=== PATIENT | male | born 1960 | race Caucasian/White ===

== ENCOUNTER 2022-04-28 15:32 | Emergency (ER) | payer SELFPAY ==
[~2022-04-28] VITALS: Ht 177.8 cm; Wt 70.5 kg
[~2022-04-28 15:32] MED LIST: CLEOCIN HC150 MG/CAP PO; NO HOME MEDICATIONS; NORCO 325 MG-51 TAB PO
[2022-04-28 16:11] VITALS: TEMP 98.5
[2022-04-28 17:06] LABS: BASO % 0.3 % (0.0-2.0); EOS # 0.3 K/mm3 (0.0-0.7); EOS % 3.4 % (0.0-4.0); GRAN # 6.2 K/mm3 (1.4-6.5); GRAN % 67.5 % (42.2-75.2); HEMATOCRIT 49.2 % (42.0-52.0); HEMOGLOBIN 15.9 g/dl (13.5-18.0); LYMPH # 1.6 K/mm3 (1.2-3.4); LYMPH % 17.3 % (20.0-51.0); MEAN CELL VOLUME 91 fl (80.0-100.0); MEAN CORPUSCULAR HEMOGLOBIN 29 pg (27-31); MEAN CORPUSCULAR HGB CONC 32 g/dl (33.0-37.0); MEAN PLATELET VOLUME 10.1 fl (7.4-10.4); MONO % 11.3 % (1.7-9.3); PLATELET COUNT 184 K/mm3 (130-400); RED BLOOD COUNT 5.42 M/mm3 (4.20-5.60); REDCELL DISTRIBUTION WIDTH-CV 13.8 % (11.5-14.5)
[2022-04-28 17:23] LABS: ALANINE AMINOTRANSFERASE 14 U/L (0-55); ALBUMIN 3.6 gm/dL (3.4-4.8); ALKALINE PHOSPHATASE 81 U/L (40-150); ANION GAP 10 mmol/L (7-16); AST,SGOT 17 U/L (5-34); BILIRUBIN,TOTAL 0.3 mg/dL (0.2-1.2); BLOOD UREA NITROGEN 13 mg/dL (8-26); CALCIUM 8.7 mg/dL (8.4-10.2); CARBON DIOXIDE 27 mmol/L (23-31); CHLORIDE 100 mmol/L (98-107); CREATININE, serum 1.01 mg/dL (0.72-1.25); GLUCOSE 74 mg/dL (70-99); POTASSIUM 4.4 mmol/L (3.5-4.5); SODIUM 137 mmol/L (136-145); TOTAL PROTEIN 7.7 gm/dL (6.2-8.1)
[2022-04-28 17:32] LABS: TROPONIN-I < 0.010 ng/mL (0.00-0.033)
[2022-04-28 18:35] VITALS: BP 141/81; PULSE 68
== END 2022-04-28 18:35 | disposition home or self-care (01) ==
LOC: COL.ER 15:32
PROVIDERS: Nurse Practitioner
DX: U07.1 COVID-19 (principal); F17.210 Nicotine dependence, cigarettes, uncomplicated; Z28.311 Partially vaccinated for COVID-19
CPT/HCPCS: J7030